=== PATIENT | female | born 1960 ===

== ENCOUNTER 2019-02-20 14:48 | Observation (INO) | payer MEDICAID, SELFPAY ==
--- NOTE | 2019-02-20 16:18 | CT ---
Date of service: 02/20/2019 PROCEDURE: CT HEAD WITHOUT CONTRAST. HISTORY: h/a; dizzy COMPARISON: None available. TECHNIQUE: Axial computed tomography images were obtained through the head/brain without intravenous contrast. Radiation dose: Total exam DLP = 1068.26 mGy-cm. This CT exam was performed using one or more of the following dose reduction techniques: Automated exposure control, adjustment of the mA and/or kV according to patient size, and/or use of iterative reconstruction technique. FINDINGS: HEMORRHAGE: No intracranial hemorrhage. BRAIN: No mass effect or edema. No atrophy or chronic microvascular ischemic changes. Foci of coarse calcification are noted adjacent to the basilar cistern and in the posterior fossa of uncertain etiology. VENTRICLES: Unremarkable. No hydrocephalus. CALVARIUM: Unremarkable. PARANASAL SINUSES: Unremarkable as visualized. No significant inflammatory changes. MASTOID AIR CELLS: Unremarkable as visualized. No inflammatory changes. OTHER FINDINGS: None. IMPRESSION: No evidence of acute intracranial hemorrhage mass effect or midline shift.
[2019-02-20 16:33] LABS: BASO % 0.3 % (0.0-2.0); EOS # 0.1 K/uL (0.0-0.7); EOS % 1.4 % (0.0-4.0); HEMOGLOBIN 13.7 g/dL (11.0-16.0); LYMPH # 3.7 K/uL (1.0-4.3); LYMPH % 36.9 % (20.0-40.0); MEAN CELL VOLUME 91.4 fL (81.0-99.0); MEAN CORPUSCULAR HEMOGLOBIN 31.9 pg (27.0-31.0); MEAN PLATELET VOLUME 10.3 fL (7.2-11.7); MONO # 0.7 K/uL (0.0-0.8); MONO % 7.3 % (0.0-10.0); NEUT # 5.4 K/uL (1.8-7.0); NEUT % 54.1 % (50.0-75.0); NRBC % 0.1 % (0.0-2.0); RBC 4.27 Mil/uL (3.80-5.20); RED CELL DISTRIBUTION WIDTH 13.9 % (11.5-14.5)
--- NOTE | 2019-02-20 16:39 | C.PDOC ---
History Of Present Illness 58 year old female presents to the emergency department with complaints of 1 week of headache, worsening over the last three days. Patient states that her pain comes and goes and that she has not taken anything for it. Patient also r eports symptoms of nausea and dizziness. Patient states that she was seen in [facility] and diagnosed with cysticercosis. Patient reports dizziness when her moves to right more than left. Time Seen by Provider: 02/20/19 15:05 Chief Complaint (Nursing): Dizziness/Lightheaded History Per: Patient History/Exam Limitations: no limitations Onset/Duration Of Symptoms: Other (1 week) Current Symptoms Are (Timing): Worse Seizure Or Post-ictal Symptoms: None Fall Associated With With Symptoms: No Past Medical History Reviewed: Historical Data, Nursing Documentation, Vital Signs Vital Signs: Last Vital Signs Temp 98.9 F 02/20/19 14:53 Pulse 56 L 02/20/19 14:53 Resp 18 02/20/19 14:53 BP 108/67 02/20/19 14:53 Pulse Ox 97 02/20/19 14:53 Primary Care Provider: Non [facility] Provider, - Medical History PMH: Hypercholesterolemia Surgical History: No Surg Hx Family History: States: No Known Family Hx - Social History Hx Tobacco Use: No Hx Alcohol Use: No Hx Substance Use: No - Immunization History Hx Tetanus Toxoid Vaccination: No Hx Influenza Vaccination: No Hx Pneumococcal Vaccination: No Review Of Systems Except As Marked, All Systems Reviewed And Found Negative. Constitutional: Negative for: Fever, Chills, Weakness Cardiovascular: Negative for: Chest Pain Gastrointestinal: Positive for: Nausea Musculoskeletal: Positive for: Neck Pain Neurological: Positive for: Headache, Dizziness. Negative for: Weakness, Numbness Physical Exam - Physical Exam Appears: Non-toxic, No Acute Distress Skin: Normal Color, Warm, Dry Head: Atraumatic, Normacephalic Eye(s): bilateral: Normal Inspection, PERRL, EOMI, Other (NO nystagmus) Ear(s): Bilateral: Normal Nose: Normal Oral Mucosa: Moist Neck: No Normal ROM (ROM decreased due to pain), Paracervical Tenderness Chest: Symmetrical Cardiovascular: Rhythm Regular, No Murmur Respiratory: Normal Breath Sounds, No Rales, No Rhonchi, No Wheezing Gastrointestinal/Abdominal: Soft, No Tenderness, No Guarding, No Rebound Extremity: Normal ROM Neurological/Psych: Oriented x3, Normal Speech, Normal Cognition ED Course And Treatment - Laboratory Results Result Diagrams: 02/20/19 16:26 02/20/19 16:26 ECG: Interpreted By Me, Viewed By Me ECG Rhythm: Sinus Bradycardia, R BBB (incomplete), Nonspecific Changes (T wave changes) Rate From EC O2 Sat by Pulse Oximetry: 97 (RA) Pulse Ox Interpretation: Normal - Other Rad CXR X-Ray: Viewed By Me, Read By Radiologist Interpretation: IMPRESSION: Prominent lung markings. No evidence of consolidation in the lungs. - CT Scan/US CT Head Other Rad Studies (CT/US): Read By Radiologist, Radiology Report Reviewed CT/US Interpretation: IMPRESSION: No evidence of acute intracranial hemorrhage mass effect or midline shift. 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 HR dropped to 44, admit for symptomatic bradycardia. Disposition - Disposition - Scribe Statement The provider has reviewed the documentation as recorded by the Scribe (Manjti Maria) Provider Attestation: All medical record entries made by the Scribe were at my direction and personally dictated by me. I have reviewed the chart and agree that the record accurately reflects my personal performance of the history, physical exam, medical decision making, and the department course for this patient. I have also personally directed, reviewed, and agree with the discharge instructions and disposition.
[2019-02-20 16:45] LABS: ALB/GLOB RATIO 1.4 (1.0-2.1); ALBUMIN 4.1 g/dL (3.5-5.0); ALT/SGPT 28 U/L (9-52); AST/SGOT 32 U/L (14-36); BLOOD UREA NITROGEN 19 mg/dL (7-17); CALCIUM 9.6 mg/dl (8.6-10.4); GFR NON-AFRICAN AMERICAN > 60
[2019-02-20] MEDS ORDERED: Sodium Chloride 0.9% 1,000 ML IV ONE (17:13)
[2019-02-20] MEDS ORDERED: Sodium Chloride 0.9% 1,000 ML ONE (17:14)
--- NOTE | 2019-02-20 17:53 | RAD ---
Date of service: 02/20/2019 PROCEDURE: CHEST RADIOGRAPH, 1 VIEW HISTORY: SOB COMPARISON: 09/10/2014 FINDINGS: LUNGS: Prominent lung markings at lower lobes are noted bilaterally. PLEURA: No pneumothorax or pleural fluid seen. CARDIOVASCULAR: No aortic atherosclerotic calcification present. Normal. OSSEOUS STRUCTURES: Status post sternotomy. VISUALIZED UPPER ABDOMEN: Normal. OTHER FINDINGS: None. IMPRESSION: Prominent lung markings. No evidence of consolidation in the lungs.
[2019-02-20] MEDS ORDERED: Glucagon Recombinant 1 mg Inj IM PRN (18:31)
[2019-02-20] MEDS ORDERED: Dextrose 50% SYRINGE Inj (50 ml) IV PRN (18:31)
--- NOTE | 2019-02-20 18:32 | CP.PCM.HP ---
<HoracioKelley cabral V - Last Filed: 02/20/19 20:34> Meds Allergies/Adverse Reactions: Allergies Allergy/AdvReac Type Severity Reaction Status Date / Time No Known Allergies Allergy Verified 02/20/19 14:57 Results - Vital Signs Recent Vital Signs: Last Vital Signs Temp 97.7 F 02/20/19 18:40 Pulse 47 L 02/20/19 18:40 Resp 20 02/20/19 18:40 BP 126/76 02/20/19 18:40 Pulse Ox 98 02/20/19 18:40 - Labs Result Diagrams: 02/20/19 16:26 02/20/19 16:26 Labs: Laboratory Results - last 24 hr 02/20/19 02/20/19 02/20/19 15:17 16:26 16:26 WBC 10.0 RBC 4.27 Hgb 13.7 Hct 39.1 MCV 91.4 MCH 31.9 H MCHC 35.0 RDW 13.9 Plt Count 202 MPV 10.3 Neut % (Auto) 54.1 Lymph % (Auto) 36.9 [place] % (Auto) 7.3 Eos % (Auto) 1.4 Baso % (Auto) 0.3 Neut # (Auto) 5.4 Lymph # (Auto) 3.7 [place] # (Auto) 0.7 Eos # (Auto) 0.1 Baso # (Auto) 0.0 Sodium 137 Potassium 4.3 Chloride 103 Carbon Dioxide 26 Anion Gap 12 BUN 19 H Creatinine 0.5 L Est GFR ( Amer) > 60 Est GFR (Non-Af Amer) > 60 POC Glucose (mg/dL) 120 H Random Glucose 114 H D Calcium 9.6 Total Bilirubin 0.3 AST 32 ALT 28 Alkaline Phosphatase 74 Troponin I < 0.0120 Total Protein 7.1 Albumin 4.1 Globulin 3.0 Albumin/Globulin Ratio 1.4 Urine HCG, Qual Urine Opiates Screen Urine Methadone Screen Ur Barbiturates Screen Ur Phencyclidine Scrn Ur Amphetamines Screen U Benzodiazepines Scrn U Oth Cocaine Metabols U Cannabinoids Screen 02/20/19 02/20/19 18:32 18:32 WBC RBC Hgb Hct MCV MCH MCHC RDW Plt Count MPV Neut % (Auto) Lymph % (Auto) [place] % (Auto) Eos % (Auto) Baso % (Auto) Neut # (Auto) Lymph # (Auto) [place] # (Auto) Eos # (Auto) Baso # (Auto) Sodium Potassium Chloride Carbon Dioxide Anion Gap BUN Creatinine Est GFR ( Amer) Est GFR (Non-Af Amer) POC Glucose (mg/dL) Random Glucose Calcium Total Bilirubin AST ALT Alkaline Phosphatase Troponin I Total Protein Albumin Globulin Albumin/Globulin Ratio Urine HCG, Qual Negative Urine Opiates Screen Negative Urine Methadone Screen Negative Ur Barbiturates Screen Negative Ur Phencyclidine Scrn Negative Ur Amphetamines Screen Negative U Benzodiazepines Scrn Negative U Oth Cocaine Metabols Negative U Cannabinoids Screen Negative Attending/Attestation - Attestation I have personally seen and examined this patient.: Yes I have fully participated in the care of the patient.: Yes I have reviewed all pertinent clinical information: Yes <Carlos Escobedo - Last Filed: 02/24/19 07:21> History of Present Illness - History of Present Illness History of Present Illness: PGY-1 History and Physical for Dr. Mujica Patient is a 58 year old female with PMHx DM, vertigo, neurocystercycosis. open heart surgery (exact surgery unknown), and bradycardia who presents c/o headache and dizziness. Patient states that for one week she has had headache in back of her head that is a/w turning her neck from side to side. Patient states headache got worse in the last 3 days prompting her to come to the emergency room. In addition, patient state dizziness that is worse when she turns her head from side to side. Patient denies any nasal or sinus congestion, recent ear infection, or fevers. Patient states she has had similar dizziness in the past which went away spontaneously. Patient has been told in the past that she has a slow resting heart rate which has not required intervention, though she does follow with a environmental epidemiologist. PMHx: DM, vertigo, neurocystercycosis, open heart surgery (exact surgery unknown), and bradycardia PSHx: Heart surgery (in [facility], patient does not know what the operation was for) All: NKA Social: Denies alcohol, tobacco., drug use; lives in apartment on basement level Family hx: Denies Medications: Reviewed as per MAR PMD: Denies Present on Admission - Present on Admission Any Indicators Present on Admission: No Review of Systems - Constitutional Constitutional: absent: Chills, Fever, Weakness - EENT Eyes: Blurred Vision, Floaters Ears: Abnormal Hearing (swishing in ears when she turns side to side) Nose/Mouth/Throat: absent: Nasal Congestion, Nasal Discharge - Cardiovascular Cardiovascular: absent: Chest Pain, Chest Pain at Rest, Dyspnea - Respiratory Respiratory: absent: Cough, Wheezing - Gastrointestinal Gastrointestinal: absent: Abdominal Pain, Nausea - Genitourinary Genitourinary: absent: Dysuria, Flank Pain - Musculoskeletal Musculoskeletal: Neck Pain (b/l neck stiffness). absent: Back Pain - Neurological Neurological: Dizziness, Headaches, Other Visual Disturbances (seeing floaters). absent: Numbness - Psychiatric Psychiatric: absent: Anxiety, Depression - Endocrine Endocrine: absent: Fatigue - Hematologic/Lymphatic Hematologic: absent: Easy Bleeding, Easy Bruising Past Patient History - Past Social History Smoking Status: 0 - CARDIAC Hx Hypercholesterolemia: Yes - ENDOCRINE/METABOLIC Hx Endocrine Disorders: Yes Hx Diabetes Mellitus Type 2: Yes - PSYCHIATRIC Hx Substance Use: No - SURGICAL HISTORY Hx Surgeries: Yes Hx Open Heart Surgery: Yes Physical Exam - Constitutional Appears: Non-toxic, No Acute Distress - Head Exam Head Exam: ATRAUMATIC, NORMOCEPHALIC - Eye Exam Eye Exam: EOMI Additional comments: cloudiness over lenses b/l - ENT Exam ENT Exam: Mucous Membranes Moist - Respiratory Exam Respiratory Exam: Clear to Auscultation Bilateral, NORMAL BREATHING PATTERN. absent: Rhonchi, Wheezes - Cardiovascular Exam Cardiovascular Exam: REGULAR RHYTHM, +S1, +S2 - GI/Abdominal Exam GI & Abdominal Exam: Normal Bowel Sounds, Soft. absent: Tenderness - Extremities Exam Extremities exam: Positive for: normal inspection. Negative for: pedal edema, tenderness - Neurological Exam Neurological exam: Alert, CN II-XII Intact, Oriented x3 - Psychiatric Exam Psychiatric exam: Normal Affect, Normal Mood - Skin Skin Exam: Dry, Intact Results - Vital Signs Recent Vital Signs: Last Vital Signs Temp 98.9 F 02/20/19 14:53 Pulse 104 H 02/20/19 18:18 Resp 19 02/20/19 18:18 BP 138/51 L 02/20/19 18:18 Pulse Ox 97 02/20/19 18:22 - Labs Result Diagrams: 02/23/19 06:49 02/23/19 06:49 Labs: Laboratory Results - last 24 hr 02/20/19 02/20/19 02/20/19 15:17 16:26 16:26 WBC 10.0 RBC 4.27 Hgb 13.7 Hct 39.1 MCV 91.4 MCH 31.9 H MCHC 35.0 RDW 13.9 Plt Count 202 MPV 10.3 Neut % (Auto) 54.1 Lymph % (Auto) 36.9 [place] % (Auto) 7.3 Eos % (Auto) 1.4 Baso % (Auto) 0.3 Neut # (Auto) 5.4 Lymph # (Auto) 3.7 [place] # (Auto) 0.7 Eos # (Auto) 0.1 Baso # (Auto) 0.0 Sodium 137 Potassium 4.3 Chloride 103 Carbon Dioxide 26 Anion Gap 12 BUN 19 H Creatinine 0.5 L Est GFR ( Amer) > 60 Est GFR (Non-Af Amer) > 60 POC Glucose (mg/dL) 120 H Random Glucose 114 H D Calcium 9.6 Total Bilirubin 0.3 AST 32 ALT 28 Alkaline Phosphatase 74 Troponin I < 0.0120 Total Protein 7.1 Albumin 4.1 Globulin 3.0 Albumin/Globulin Ratio 1.4 Assessment & Plan - Assessment and Plan (Free Text) Assessment: 58 year old female with PMHx DM, vertigo, neurocystercycosis. open heart surgery, and bradycardia presents with headache and dizziness. Likely 2/2 vestibular labarynthitis, r/o acute nerological ccauses. Plan: Headache, hx neurocystercycosis -Ct head: No acute pathologic changes, no ICH -Neurochecks Q4 -CTA h/n w/ contrast - f/u -MRI brain w/o - f/u Dizziness -TSH, free T4 -NS @ 50 Hx Bradycardia -Pt reports hx asymptomatic bradycardia known by her environmental epidemiologist -HR increases on standing -Tele -Q6 EKG/NILSON - f/u -Echo - f/u Hx Heart surgery -15 years ago for vessels -echo - f/u DM -Metformin held -ISS -Accuchecks ACHS -Resume ASA 81 PPx -Heparin 5000 U SC Q12 -Fall risk protocol -PT/OT Assessment and plan d/w Dr. Sil Escobedo, PGY-1
[2019-02-20 19:16] LABS: BARBITURATES, UR NEGATIVE (NEGATIVE); BENZODIAZEPINES, UR NEGATIVE (NEGATIVE); OPIATES, UR NEGATIVE (NEGATIVE)
[2019-02-20 19:17] LABS: PHENCYCLIDINE, UR NEGATIVE (NEGATIVE)
[2019-02-20] MEDS: Sodium Chloride 0.9% 1,000 ML IV SCH (20:16)
[2019-02-20] MEDS ORDERED: Iodixanol 320 MG/ML 100 ML BOTTLE IV ONE (20:22)
[2019-02-20] MEDS: (Novolog) Insulin Aspart, Recombinant 100 u/ml 10 ml vial SC SCH (21:31)
[2019-02-20] MEDS ORDERED: (Novolog) Insulin Aspart, Recombinant 100 u/ml 10 ml vial SC SCH (22:00)
[2019-02-20 22:52] LABS: CK-MB 0.65 ng/mL (0.0-3.38)
[2019-02-21 04:40] LABS: HEMOGLOBIN 12.5 g/dL (11.0-16.0); MEAN CELL VOLUME 91.2 fL (81.0-99.0); MEAN CORPUSCULAR HEMOGLOBIN 30.4 pg (27.0-31.0); MEAN CORPUSCULAR HGB CONC 33.3 g/dL (33.0-37.0); MEAN PLATELET VOLUME 9.5 fL (7.2-11.7); RBC 4.11 Mil/uL (3.80-5.20); WHITE BLOOD COUNT 8.1 K/uL (4.8-10.8)
[2019-02-21 05:03] LABS: CK-MB 0.42 ng/mL (0.0-3.38); LDL CHOLESTEROL 141 mg/dL (0-129)
[2019-02-21 05:45] LABS: ALB/GLOB RATIO 1.5 (1.0-2.1); ALBUMIN 3.8 g/dL (3.5-5.0); ALT/SGPT 23 U/L (9-52); AST/SGOT 23 U/L (14-36); BLOOD UREA NITROGEN 14 mg/dL (7-17); CALCIUM 8.7 mg/dl (8.6-10.4); GFR NON-AFRICAN AMERICAN > 60; HDL CHOLESTEROL 39 mg/dL (30-70)
[2019-02-21] MEDS: (Novolog) Insulin Aspart, Recombinant 100 u/ml 10 ml vial SC SCH ×4 (10:21→21:38)
--- NOTE | 2019-02-21 11:58 | CP.PCM.PN ---
Subjective - Date & Time of Evaluation Date of Evaluation: 02/21/19 Time of Evaluation: 11:00 - Subjective Subjective: Medicine Progress Note for Hospitalist Service, Dr. Ling Pt seen and examined at bedside this am. C/o dizziness this am, states she is afraid to walk for fear of falling 2/2 to her dizziness. Reports decreased L sided hearing which has been chronic for the past several years. No acute events reported overnight by staff. Denies fever, chills, chest pain, sob, n/v/d/c, urinary complaints, or other symptoms. Objective - Vital Signs/Intake and Output Vital Signs (last 24 hours): Temp Pulse Resp BP Pulse Ox 98.1 F 47 L 20 121/72 98 02/21/19 07:10 02/21/19 11:12 02/21/19 07:10 02/21/19 07:10 02/21/19 07:10 - Medications Medications: Current Medications Acetaminophen (Tylenol 325mg Tab) 650 mg PO Q6 PRN PRN Reason: Headache Aspirin (Ecotrin) 81 mg PO DAILY [facility] Last Admin: 02/21/19 10:22 Dose: 81 mg Dextrose (Dextrose 50% Inj) 0 ml IV STAT PRN; Protocol PRN Reason: Hypoglycemia Protocol Dextrose (Glutose 15) 0 gm PO ONCE PRN; Protocol PRN Reason: Hypoglycemia Protocol Diphenhydramine HCl (Benadryl) 25 mg PO Q8H PRN PRN Reason: Itching / Pruritus Glucagon (Glucagen Diagnostic Kit) 0 mg IM STAT PRN; Protocol PRN Reason: Hypoglycemia Protocol Heparin Sodium (Porcine) (Heparin) 5,000 units SC Q12 [facility] Last Admin: 02/21/19 10:22 Dose: 5,000 units Dextrose (Dextrose 5% In Water 1000 Ml) 1,000 mls @ 0 mls/hr IV .Q0M PRN; Protocol PRN Reason: Hypoglycemia Protocol Sodium Chloride (Sodium Chloride 0.9%) 1,000 mls @ 50 mls/hr IV .Q20H [facility] Last Admin: 02/20/19 20:16 Dose: 50 mls/hr Insulin Aspart (Novolog) 0 unit SC ACHS LAMIN; Protocol Last Admin: 02/21/19 10:21 Dose: Not Given Meclizine HCl (Antivert) 25 mg PO Q8H PRN PRN Reason: Dizziness Last Admin: 02/21/19 08:21 Dose: 25 mg Ondansetron HCl (Zofran Tab) 4 mg PO Q8 PRN PRN Reason: Nausea/Vomiting Rosuvastatin Calcium (Crestor) 10 mg PO HS LAMIN - Labs Labs: 02/21/19 04:35 02/21/19 04:35 - Constitutional Appears: Non-toxic, No Acute Distress - Head Exam Head Exam: ATRAUMATIC, NORMOCEPHALIC - Eye Exam Eye Exam: EOMI, Normal appearance, Nystagmus - ENT Exam ENT Exam: Mucous Membranes Moist, Normal Oropharynx - Neck Exam Neck Exam: Full ROM, Normal Inspection. absent: Tenderness - Respiratory Exam Respiratory Exam: Clear to Ausculation Bilateral, NORMAL BREATHING PATTERN. absent: Rales, Rhonchi, Wheezes - Cardiovascular Exam Cardiovascular Exam: REGULAR RHYTHM, +S1, +S2. absent: Gallop, Rubs, Murmur - GI/Abdominal Exam GI & Abdominal Exam: Soft, Tenderness, Normal Bowel Sounds. absent: Distended, Guarding, Organomegaly - Extremities Exam Extremities Exam: Full ROM, Normal Capillary Refill, Normal Inspection - Neurological Exam Neurological Exam: Alert, Awake, CN II-XII Intact, Oriented x3 - Skin Skin Exam: Dry, Intact, Normal Color, Warm Assessment and Plan - Assessment and Plan (Free Text) Assessment: 58 year old female with PMHx DM, vertigo, neurocysticercosis. 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 Likely 2/2 vestibular labyrinthitis, BPPV, r/o acute neurological causes. Neurology and Cardiology consulted. Plan: Headache, hx neurocysticercosis -Ct head: No acute pathologic changes, no ICH -Neurochecks Q4 -Utox neg on admission -CTA head/neck w/ contrast: unremarkable -MRI brain pending -Neurology, Dr. Corona, consulted, recs appreciated Dizziness -TSH, free T4 wnl -NS @ 50 Hx Bradycardia -Pt reports hx asymptomatic bradycardia known by her automatic stacker for past 4 y, had prior work-up at [facility] -Will obtain prior records from [facility] at [facility], pt signed consent to have medical records released -HR increases on standing -Tele -NILSON x3 neg -Echo pending -Cardiology consulted, Dr. Breen, recs appreciated Hx Heart surgery -15 years ago for transposition of the great vessels -Echo pending DM -Metformin held -ISS -Accuchecks ACHS -ASA 81 PPX -Heparin 5000 U SC Q12 -Fall risk protocol -PT/OT Pt seen, examined with, and plan discussed with Dr. Ling, attending physician. Hernan Brown DO PGY-1, Contact Acid Plant Operator pager #[phone]
--- NOTE | 2019-02-21 13:12 | CP.PCM.CON ---
History of Present Illness - History of Present Illness History of Present Illness: Neurology Consultation Note: Consult requested by Dr. Mujica Mrs. Parks is a 58-year-old woman with a past medical history of DM, vertigo, neurocystercycosis, previous sternotomy for cardiac surgery, and bradycardia, who complains of a headache that has been ongoing for the last 2 weeks, but has progressed to a greater severity over the last 3 days. Non-contrast CT scan of the head was done and showed multiple areas of intracranial calcifications. Currently, the patient is not complaining of headache, but states that she feels dizzy and that the room is spinning. This is especially notable when she looks, or moves toward the left. She has nausea, but no vomiting. She feels that she has difficulty with walking as a result of these symptoms. Review of Systems - Constitutional Constitutional: As Per HPI - EENT Eyes: Blurred Vision Ears: absent: As Per HPI, Decreased Hearing, Ear Discharge, Ear Pain, Tinnitus, Abnormal Hearing, Disequilibrium, Dizziness, Other Nose/Mouth/Throat: absent: As Per HPI, Epistaxis, Nasal Congestion, Nasal Discharge, Nasal Obstruction, Nasal Trauma, Nose Pain, Post Nasal Drip, Sinus Pain, Sinus Pressure, Bleeding Gums, Change in Voice, Dental Pain, Dry Mouth, Dysphagia, Halitosis, Hoarsness, Lip Swelling, Mouth Lesions, Mouth Pain, Odynophagia, Sore Throat, Throat Swelling, Tongue Swelling, Facial Pain, Neck Pain, Neck Mass, Other - Cardiovascular Cardiovascular: As Per HPI - Respiratory Respiratory: absent: As Per HPI, Cough, Dyspnea, Hemoptysis, Dyspnea on Exertion, Wheezing, Snoring, Stridor, Pain on Inspiration, Chest Congestion, Excessive Mucous Production, Change in Mucous Color, Pain with Coughing, Other - Gastrointestinal Gastrointestinal: absent: As Per HPI, Abdominal Pain, Belching, Bloating, Change in Bowel Habits, Change in Stool Character, Coffee Ground Emesis, Constipation, Cramping, Diarrhea, Dyspepsia, Dysphagia, Early Satiety, Excessive Flatus, Fecal Incontinence, Heartburn, Hematemesis, Hematochezia, Loose Stools, Melena, Nausea, Odynophagia, Temesmus, Vomiting, Other - Musculoskeletal Musculoskeletal: absent: As Per HPI, Abnormal Gait, Arthralgias, Atrophy, Back Pain, Deformity, Joint Swelling, Limited Range of Motion, Loss of Height, Muscle Cramps, Muscle Weakness, Myalgias, Neck Pain, Numbness, Radiating Pain into Limb, Stiffness, Tingling, Other - Integumentary Integumentary: absent: As Per HPI, Acne, Alopecia, Bleeding Lesions, Change in Hair, Change in Nails, Change in Pigmentation, Changing Lesions, Dry Skin, Erythema, Furuncle, Hirsutism, Lesions, New Lesions, Non-Healing Lesions, Aliya tosensitivity, Pruritus, Rash, Skin Pain, Skin Ulcer, Sores, Striae, Swelling, Unusual Bruising, Wounds, Jaundice, Other - Neurological Neurological: As Per HPI - Psychiatric Psychiatric: absent: As Per HPI, Abnormal Sleep Pattern, Anhedonia, Anxiety, Auditory Hallucinations, Behavioral Changes, Change in Appetite, Change in Libido, Confusion, Depression, Difficulty Concentrating, Hallucinations, Homicidal Ideation, Hopelessness, Irritability, Memory Loss, Mood Swings, Panic Attacks, Paranoia, Suicidal Ideation, Visual Hallucinations, Tactile Hallucinations, Other - Endocrine Endocrine: absent: As Per HPI, Change in Body Appearance, Change in Libido, Cold Intolorance, Deepening of Voice, Excessive Sweating, Fatigue, Flushing, Heat Intolorance, Increase in Ring/Shoe/Hat Size, Palpitations, Polydipsia, Polyphagia, Polyuria, Other Past Patient History - Past Social History Smoking Status: 0 - CARDIAC Hx Hypercholesterolemia: Yes - ENDOCRINE/METABOLIC Hx Diabetes Mellitus Type 2: Yes - PSYCHIATRIC Hx Substance Use: No - SURGICAL HISTORY Hx Surgeries: Yes Hx Open Heart Surgery: Yes Meds Allergies/Adverse Reactions: Allergies Allergy/AdvReac Type Severity Reaction Status Date / Time No Known Allergies Allergy Verified 02/20/19 14:57 - Medications Medications: Current Medications Acetaminophen (Tylenol 325mg Tab) 650 mg PO Q6 PRN PRN Reason: Headache Aspirin (Ecotrin) 81 mg PO DAILY [facility] Last Admin: 02/21/19 10:22 Dose: 81 mg Dextrose (Dextrose 50% Inj) 0 ml IV STAT PRN; Protocol PRN Reason: Hypoglycemia Protocol Dextrose (Glutose 15) 0 gm PO ONCE PRN; Protocol PRN Reason: Hypoglycemia Protocol Diphenhydramine HCl (Benadryl) 25 mg PO Q8H PRN PRN Reason: Itching / Pruritus Glucagon (Glucagen Diagnostic Kit) 0 mg IM STAT PRN; Protocol PRN Reason: Hypoglycemia Protocol Heparin Sodium (Porcine) (Heparin) 5,000 units SC Q12 [facility] Last Admin: 02/21/19 10:22 Dose: 5,000 units Dextrose (Dextrose 5% In Water 1000 Ml) 1,000 mls @ 0 mls/hr IV .Q0M PRN; Protocol PRN Reason: Hypoglycemia Protocol Sodium Chloride (Sodium Chloride 0.9%) 1,000 mls @ 50 mls/hr IV .Q20H [facility] Last Admin: 02/20/19 20:16 Dose: 50 mls/hr Insulin Aspart (Novolog) 0 unit SC ACHS [facility]; Protocol Last Admin: 02/21/19 12:02 Dose: Not Given Meclizine HCl (Antivert) 25 mg PO Q8H PRN PRN Reason: Dizziness Last Admin: 02/21/19 08:21 Dose: 25 mg Ondansetron HCl (Zofran Tab) 4 mg PO Q8 PRN PRN Reason: Nausea/Vomiting Rosuvastatin Calcium (Crestor) 10 mg PO HS [facility] Physical Exam - Constitutional Appears: Well - Head Exam Head Exam: ATRAUMATIC, NORMAL INSPECTION, NORMOCEPHALIC - Eye Exam Eye Exam: EOMI, Normal appearance, PERRL Pupil Exam: NORMAL ACCOMODATION, PERRL - ENT Exam ENT Exam: Mucous Membranes Moist, Normal Exam - Neck Exam Neck exam: Positive for: Normal Inspection - Respiratory Exam Respiratory Exam: Clear to Auscultation Bilateral, NORMAL BREATHING PATTERN - Cardiovascular Exam Cardiovascular Exam: Bradycardia, +S1, +S2 - GI/Abdominal Exam GI & Abdominal Exam: Normal Bowel Sounds, Soft. absent: Tenderness - Extremities Exam Extremities exam: Positive for: normal inspection - Back Exam Back exam: NORMAL INSPECTION - Neurological Exam Neurological exam: Alert, CN II-XII Intact, Normal Gait, Oriented x3, Reflexes Normal - Psychiatric Exam Psychiatric exam: Normal Affect, Normal Mood - Skin Skin Exam: Dry, Intact, Normal Color, Warm Results - Vital Signs Recent Vital Signs: Last Vital Signs Temp 98.1 F 02/21/19 07:10 Pulse 47 L 02/21/19 11:12 Resp 20 02/21/19 07:10 BP 121/72 02/21/19 07:10 Pulse Ox 98 02/21/19 07:10 - Labs Result Diagrams: 02/21/19 04:35 02/21/19 04:35 Labs: Laboratory Results - last 24 hr 02/20/19 02/20/19 02/20/19 15:17 16:26 16:26 WBC 10.0 RBC 4.27 Hgb 13.7 Hct 39.1 MCV 91.4 MCH 31.9 H MCHC 35.0 RDW 13.9 Plt Count 202 MPV 10.3 Neut % (Auto) 54.1 Lymph % (Auto) 36.9 Crisp % (Auto) 7.3 Eos % (Auto) 1.4 Baso % (Auto) 0.3 Neut # (Auto) 5.4 Lymph # (Auto) 3.7 Crisp # (Auto) 0.7 Eos # (Auto) 0.1 Baso # (Auto) 0.0 Sodium 137 Potassium 4.3 Chloride 103 Carbon Dioxide 26 Anion Gap 12 BUN 19 H Creatinine 0.5 L Est GFR ( Amer) > 60 Est GFR (Non-Af Amer) > 60 POC Glucose (mg/dL) 120 H Random Glucose 114 H D Hemoglobin A1c Calcium 9.6 Phosphorus Magnesium Total Bilirubin 0.3 AST 32 ALT 28 Alkaline Phosphatase 74 Total Creatine Kinase CK-MB (Mass) Troponin I < 0.0120 Total Protein 7.1 Albumin 4.1 Globulin 3.0 Albumin/Globulin Ratio 1.4 Triglycerides Cholesterol LDL Cholesterol Direct HDL Cholesterol Free T4 TSH 3rd Generation Urine HCG, Qual Urine Opiates Screen Urine Methadone Screen Ur Barbiturates Screen Ur Phencyclidine Scrn Ur Amphetamines Screen U Benzodiazepines Scrn U Oth Cocaine Metabols U Cannabinoids Screen 02/20/19 02/20/19 02/20/19 18:32 18:32 21:24 WBC RBC Hgb Hct MCV MCH MCHC RDW Plt Count MPV Neut % (Auto) Lymph % (Auto) Crisp % (Auto) Eos % (Auto) Baso % (Auto) Neut # (Auto) Lymph # (Auto) Crisp # (Auto) Eos # (Auto) Baso # (Auto) Sodium Potassium Chloride Carbon Dioxide Anion Gap BUN Creatinine Est GFR ( Amer) Est GFR (Non-Af Amer) POC Glucose (mg/dL) 130 H Random Glucose Hemoglobin A1c Calcium Phosphorus Magnesium Total Bilirubin AST ALT Alkaline Phosphatase Total Creatine Kinase CK-MB (Mass) Troponin I Total Protein Albumin Globulin Albumin/Globulin Ratio Triglycerides Cholesterol LDL Cholesterol Direct HDL Cholesterol Free T4 TSH 3rd Generation Urine HCG, Qual Negative Urine Opiates Screen Negative Urine Methadone Screen Negative Ur Barbiturates Screen Negative Ur Phencyclidine Scrn Negative Ur Amphetamines Screen Negative U Benzodiazepines Scrn Negative U Oth Cocaine Metabols Negative U Cannabinoids Screen Negative 02/20/19 02/21/19 02/21/19 22:24 04:35 04:35 WBC RBC Hgb Hct MCV MCH MCHC RDW Plt Count MPV Neut % (Auto) Lymph % (Auto) Crisp % (Auto) Eos % (Auto) Baso % (Auto) Neut # (Auto) Lymph # (Auto) Crisp # (Auto) Eos # (Auto) Baso # (Auto) Sodium 138 Potassium 4.1 Chloride 107 Carbon Dioxide 22 Anion Gap 13 BUN 14 Creatinine 0.6 L Est GFR ( Amer) > 60 Est GFR (Non-Af Amer) > 60 POC Glucose (mg/dL) Random Glucose 108 H Hemoglobin A1c Calcium 8.7 Phosphorus 4.3 Magnesium 2.1 Total Bilirubin 0.3 AST 23 ALT 23 Alkaline Phosphatase 65 Total Creatine Kinase 45 CK-MB (Mass) 0.65 Troponin I < 0.0120 Total Protein 6.2 L Albumin 3.8 Globulin 2.5 Albumin/Globulin Ratio 1.5 Triglycerides 292 H D Cholesterol 223 H LDL Cholesterol Direct 141 H HDL Cholesterol 39 Free T4 0.93 TSH 3rd Generation 2.41 Urine HCG, Qual Urine Opiates Screen Urine Methadone Screen Ur Barbiturates Screen Ur Phencyclidine Scrn Ur Amphetamines Screen U Benzodiazepines Scrn U Oth Cocaine Metabols U Cannabinoids Screen 02/21/19 02/21/19 02/21/19 04:35 04:35 04:35 WBC 8.1 RBC 4.11 Hgb 12.5 Hct 37.5 MCV 91.2 MCH 30.4 MCHC 33.3 RDW 14.0 Plt Count 180 MPV 9.5 Neut % (Auto) Lymph % (Auto) Crisp % (Auto) Eos % (Auto) Baso % (Auto) Neut # (Auto) Lymph # (Auto) Crisp # (Auto) Eos # (Auto) Baso # (Auto) Sodium Potassium Chloride Carbon Dioxide Anion Gap BUN Creatinine Est GFR ( Amer) Est GFR (Non-Af Amer) POC Glucose (mg/dL) Random Glucose Hemoglobin A1c 6.4 Calcium Phosphorus Magnesium Total Bilirubin AST ALT Alkaline Phosphatase Total Creatine Kinase 29 L CK-MB (Mass) 0.42 Troponin I < 0.0120 Total Protein Albumin Globulin Albumin/Globulin Ratio Triglycerides Cholesterol LDL Cholesterol Direct HDL Cholesterol Free T4 TSH 3rd Generation Urine HCG, Qual Urine Opiates Screen Urine Methadone Screen Ur Barbiturates Screen Ur Phencyclidine Scrn Ur Amphetamines Screen U Benzodiazepines Scrn U Oth Cocaine Metabols U Cannabinoids Screen 02/21/19 02/21/19 06:21 11:22 WBC RBC Hgb Hct MCV MCH MCHC RDW Plt Count MPV Neut % (Auto) Lymph % (Auto) Crisp % (Auto) Eos % (Auto) Baso % (Auto) Neut # (Auto) Lymph # (Auto) Crisp # (Auto) Eos # (Auto) Baso # (Auto) Sodium Potassium Chloride Carbon Dioxide Anion Gap BUN Creatinine Est GFR ( Amer) Est GFR (Non-Af Amer) POC Glucose (mg/dL) 114 H 129 H Random Glucose Hemoglobin A1c Calcium Phosphorus Magnesium Total Bilirubin AST ALT Alkaline Phosphatase Total Creatine Kinase CK-MB (Mass) Troponin I Total Protein Albumin Globulin Albumin/Globulin Ratio Triglycerides Cholesterol LDL Cholesterol Direct HDL Cholesterol Free T4 TSH 3rd Generation Urine HCG, Qual Urine Opiates Screen Urine Methadone Screen Ur Barbiturates Screen Ur Phencyclidine Scrn Ur Amphetamines Screen U Benzodiazepines Scrn U Oth Cocaine Metabols U Cannabinoids Screen Assessment & Plan (1) Vertigo Assessment and Plan: Likely benign positional vertigo. I recommend starting valium 2 mg BID and consulting with PT for vestibular rehab and Eply maneuver as well as education. MRI of the brain is pending. Thank you for this consultation. Status: Acute
--- NOTE | 2019-02-21 17:47 | CT ---
Date of service: 02/20/2019 PROCEDURE: CT Angiography of the Brain and neck. HISTORY: dizziness, history neurocystercycosis COMPARISON: None available. TECHNIQUE: CT angiography of the neck and intracranial arteries was performed. Coronal and sagittal maximum intensity projection reformated images were generated. IV contrast: 100 mL of Visipaque 320 intravenously. Radiation dose: Total exam DLP = 520.1 mGy-cm. This CT exam was performed using one or more of the following dose reduction techniques: Automated exposure control, adjustment of the mA and/or kV according to patient size, and/or use of iterative reconstruction technique. FINDINGS: RIGHT CAROTID ARTERIES: Common Carotid Artery: Normal. Carotid Bifurcation: Normal. Internal Carotid small foci of atherosclerotic calcification are noted at carotid bifurcation without evidence of significant stenosis. External Carotid Artery (proximal branches): Normal. LEFT CAROTID ARTERIES: Common Carotid Artery: Normal. Carotid Bifurcation: Normal. Internal Carotid Artery:Normal. External Carotid Artery (proximal branches): Normal. VERTEBRAL ARTERIES: Right Vertebral Artery: Normal. Left Vertebral Artery: Normal. INTERNAL CEREBRAL ARTERIES: Unremarkable. The skull base, petrous, cavernous and supraclinoid segments are bilaterally widely patent. ANTERIOR CEREBRAL ARTERIES: Unremarkable. A1 and A2 segments are widely patent. Smaller distal branches unremarkable, as visualized. MIDDLE CEREBRAL ARTERIES: Unremarkable. M1 and M2 segments are widely patent. Perisylvian branches grossly symmetric. POSTERIOR CIRCULATION: Basilar Artery: Unremarkable. Distal Vertebral Arteries: Unremarkable. Posterior Cerebral Arteries: Unremarkable. Posterior Inferior Cerebellar Arteries: Unremarkable. ANEURYSM/ VASCULAR MALFORMATIONS: None. OTHER FINDINGS: None. IMPRESSION: Unremarkable CT Angiography of the Brain.
[2019-02-22] MEDS: (Novolog) Insulin Aspart, Recombinant 100 u/ml 10 ml vial SC SCH ×3 (07:54→17:02)
[2019-02-22 08:32] LABS: HEMOGLOBIN 12.7 g/dL (11.0-16.0); MEAN CELL VOLUME 89.9 fL (81.0-99.0); MEAN CORPUSCULAR HEMOGLOBIN 30.7 pg (27.0-31.0); MEAN CORPUSCULAR HGB CONC 34.2 g/dL (33.0-37.0); MEAN PLATELET VOLUME 9.7 fL (7.2-11.7); RBC 4.12 Mil/uL (3.80-5.20); WHITE BLOOD COUNT 7.8 K/uL (4.8-10.8)
[2019-02-22 08:54] LABS: ALB/GLOB RATIO 1.6 (1.0-2.1); ALT/SGPT 26 U/L (9-52); AST/SGOT 29 U/L (14-36); BLOOD UREA NITROGEN 17 mg/dL (7-17); CALCIUM 9.1 mg/dl (8.6-10.4); GFR NON-AFRICAN AMERICAN > 60
--- NOTE | 2019-02-22 10:37 | CARD ---
APPROVED REPORT Date of service: 02/22/2019 EXAM: Two-dimensional and M-mode echocardiogram with Doppler and color Doppler. Other Information Quality : GoodRhythm : Bradycardia INDICATION Dizziness and Vertigo HX OF UNKNOWN HEART SURGERY RISK FACTORS Diabetes 2D DIMENSIONS IVSd0.8 (0.7-1.1cm)LVDd4.6 (3.9-5.9cm) PWd0.8 (0.7-1.1cm)LA Ubakjb88 (18-58mL) LVDs2.7 (2.5-4.0cm)FS (%) 34.3 % LVEF (%)53.3 (>50%)LVEF (Omer's)52.00 % IVC0.00 cm M-Mode DIMENSIONS RVDd2.70 (2.1-3.2cm)Left Atrium (MM)4.37 (2.5-4.0cm) IVSd1.01 (0.7-1.1cm)Aortic Root2.85 (2.2-3.7cm) LVDd5.37 (4.0-5.6cm)Aortic Cusp Exc.1.91 (1.5-2.0cm) PWd0.82 (0.7-1.1cm)FS (%) 31 % LVDs3.71 (2.0-3.8cm)TAPSE10.58 cm LVEF (%)58 (>50%) Mitral Valve MV E Gmjhrpnb32.9cm/sMV A Pbnprrzj60.3cm/sE/A ratio2.4 RDUV742.47 cm/s TDI Lateral E' Peak V11.19cm/sMedial E' Peak V6.55cm/sE/Lateral E'6.6 E/Medial E'11.3 Tricuspid Valve TR Peak Kakywces880rs/sTR Peak Gr.99qgKrUWDS89brPb LEFT VENTRICLE The left ventricle is normal size. There is normal left ventricular wall thickness. The left ventricular function is normal. The left ventricular ejection fraction is within the normal range. There is normal LV segmental wall motion. The left ventricular diastolic function is normal. RIGHT VENTRICLE The right ventricle is moderately dilated. There is normal right ventricular wall thickness. The right ventricular systolic function is normal. ATRIA The left atrium is mildly dilated. The right atrium is severely dilated. AORTIC VALVE The aortic valve is mildly thickened. No aortic regurgitation is present. There is no aortic valvular stenosis. MITRAL VALVE The mitral valve is mildly thickened. Mitral regurgitation is mild. TRICUSPID VALVE There is moderate tricuspid regurgitation. There is mild pulmonary hypertension. PULMONIC VALVE There is moderate pulmonic valvular regurgitation. GREAT VESSELS The aortic root is normal in size. The IVC is normal in size and collapses >50% with inspiration. PERICARDIAL EFFUSION There is no pericardial effusion. <Conclusion> There is normal left ventricular wall thickness. The left ventricular function is normal. The left ventricular ejection fraction is within the normal range. There is normal LV segmental wall motion. The left ventricular diastolic function is normal. The right ventricle is moderately dilated. The right atrium is severely dilated. Mitral regurgitation is mild. There is moderate tricuspid regurgitation. There is mild pulmonary hypertension. There is moderate pulmonic valvular regurgitation.
--- NOTE | 2019-02-22 13:38 | MRI ---
Date of service: 02/22/2019 PROCEDURE: MRI BRAIN WITHOUT CONTRAST HISTORY: Dizziness, history neurocysticercosis COMPARISON: CT head without contrast from 02/20/2019 TECHNIQUE: Multiplanar, multisequence MR images of the brain were obtained without intravenous contrast enhancement. FINDINGS: HEMORRHAGE: None DWI: No evidence of an acute or early subacute infarction. BRAIN PARENCHYMA: There are mild chronic microangiopathic changes. There is no mass, mass effect or abnormal extra-axial fluid collection. There is no territorial infarction. There is mild cerebellar tonsillar ectopia. There is an empty sella. VENTRICLES: There is mild age-related global parenchymal volume loss and proportionate enlargement of the ventricles and cortical sulci. There are prominent arachnoid granulations in the posterior fossa. CRANIUM: There is normal bone marrow signal pattern. ORBITS: Grossly unremarkable. PARANASAL SINUSES/MASTOIDS: Predominantly clear. VASCULAR SYSTEM: There are normal signal voids in the larger intracranial arteries. OTHER FINDINGS: None. IMPRESSION: No acute intracranial abnormality. Mild chronic microangiopathic changes and mild age-related global parenchymal volume loss.
--- NOTE | 2019-02-22 16:02 | CP.PCM.PN ---
Subjective - Date & Time of Evaluation Date of Evaluation: 02/22/19 Time of Evaluation: 15:58 - Subjective Subjective: Neuro Follow-Up Note: Mrs. Parks was evaluated this afternoon at bedside. She is still complaining of feeling dizzy and unbalanced when she moves her head from side to side and when she stands up too fast from a sitting/laying position. She does, however, admit that these symptoms have gotten better with the Valium. She denies h/a, visual changes, difficulty with speech, chest pain, palpitations, sob, cough, abd pain, n/v/d, paresthesias, chills. Objective - Vital Signs/Intake and Output Vital Signs (last 24 hours): Temp Pulse Resp BP Pulse Ox 97.6 F 57 L 20 104/63 98 02/22/19 08:00 02/22/19 12:00 02/22/19 08:00 02/22/19 08:00 02/22/19 12:00 Intake and Output: 02/22/19 02/22/19 06:59 18:59 Intake Total 1150 Balance 1150 - Medications Medications: Current Medications Acetaminophen (Tylenol 325mg Tab) 650 mg PO Q6 PRN PRN Reason: Headache Last Admin: 02/22/19 00:37 Dose: 650 mg Aspirin (Ecotrin) 81 mg PO DAILY [facility] Last Admin: 02/22/19 11:30 Dose: 81 mg Dextrose (Dextrose 50% Inj) 0 ml IV STAT PRN; Protocol PRN Reason: Hypoglycemia Protocol Dextrose (Glutose 15) 0 gm PO ONCE PRN; Protocol PRN Reason: Hypoglycemia Protocol Diphenhydramine HCl (Benadryl) 25 mg PO Q8H PRN PRN Reason: Itching / Pruritus Glucagon (Glucagen Diagnostic Kit) 0 mg IM STAT PRN; Protocol PRN Reason: Hypoglycemia Protocol Heparin Sodium (Porcine) (Heparin) 5,000 units SC Q12 [facility] Last Admin: 02/22/19 11:30 Dose: 5,000 units Dextrose (Dextrose 5% In Water 1000 Ml) 1,000 mls @ 0 mls/hr IV .Q0M PRN; Protocol PRN Reason: Hypoglycemia Protocol Sodium Chloride (Sodium Chloride 0.9%) 1,000 mls @ 50 mls/hr IV .Q20H [facility] Last Admin: 02/20/19 20:16 Dose: 50 mls/hr Insulin Aspart (Novolog) 0 unit SC ACHS [facility]; Protocol Last Admin: 02/22/19 12:47 Dose: 1 unit Meclizine HCl (Antivert) 25 mg PO Q8H PRN PRN Reason: Dizziness Last Admin: 02/22/19 12:13 Dose: 25 mg Ondansetron HCl (Zofran Tab) 4 mg PO Q8 PRN PRN Reason: Nausea/Vomiting Rosuvastatin Calcium (Crestor) 10 mg PO HS [facility] Last Admin: 02/21/19 21:51 Dose: 10 mg - Labs Labs: 02/22/19 08:17 02/22/19 08:17 - Constitutional Appears: Well, Non-toxic - Head Exam Head Exam: ATRAUMATIC, NORMAL INSPECTION, NORMOCEPHALIC - Eye Exam Eye Exam: EOMI, Normal appearance, PERRL Pupil Exam: NORMAL ACCOMODATION, PERRL - ENT Exam ENT Exam: Mucous Membranes Moist - Neck Exam Neck Exam: Full ROM, Normal Inspection - Respiratory Exam Respiratory Exam: NORMAL BREATHING PATTERN - Extremities Exam Extremities Exam: Full ROM, Normal Inspection. absent: Calf Tenderness, Pedal Edema - Back Exam Back Exam: Full ROM - Neurological Exam Neurological Exam: Alert, Awake, CN II-XII Intact, Oriented x3, Reflexes Normal Neuro motor strength exam: Left Upper Extremity: 5, Right Upper Extremity: 5, Left Lower Extremity: 5, Right Lower Extremity: 5 Additional comments: No focal motor or sensory deficits. No tremors. - Psychiatric Exam Psychiatric exam: Normal Affect, Normal Mood - Skin Skin Exam: Normal Color Assessment and Plan (1) Vertigo Assessment & Plan: Imaging reviewed: -Brain MRI (02/21/19): No acute intracranial abnormality. Mild chronic microangiopathic changes and mild age-related global parenchymal volume loss. -CTA Head and Neck (02/20/19): unremarkable. -CT head (02/20/19): No evidence of acute intracranial hemorrhage mass effect or midline shift. -Continue Valium 2mg PO BID prn. -Rehab for vestibular therapy and continue as outpatient. -Outpatient ENT consult as pt admits to feeling discomfort to left ear on/off. -Recommend cardiac work-up as pt has periods of bradycardia ad hypotension. R/o cardiac cause for current symptoms. -No further neuro recommendations. Reconsult prn. Thank you for this consultation. Keyana Marrero DNP, APPLICATIONS SCIENTIST d/w Dr. Corona Status: Acute
--- NOTE | 2019-02-22 19:02 | CP.PCM.PN ---
<Hernan Brown - Last Filed: 02/22/19 19:06> Subjective - Date & Time of Evaluation Date of Evaluation: 02/22/19 Time of Evaluation: 10:30 - Subjective Subjective: Medicine Progress Note for Hospitalist Service, Dr. Torres Pt seen and examined at bedside this am. Still having dizziness this am. C/o facial pain, R > L, somewhat improved since admission but still bothering her currently. Otherwise no acute events reported overnight by staff. Denies fever, chills, chest pain, sob, n/v/d/c, abd pain, urinary complaints, or other symptoms. Objective - Vital Signs/Intake and Output Vital Signs (last 24 hours): Temp Pulse Resp BP Pulse Ox 97.8 F 52 L 20 113/70 98 02/22/19 16:00 02/22/19 16:30 02/22/19 16:00 02/22/19 16:00 02/22/19 16:30 - Medications Medications: Current Medications Acetaminophen (Tylenol 325mg Tab) 650 mg PO Q6 PRN PRN Reason: Headache Last Admin: 02/22/19 00:37 Dose: 650 mg Aspirin (Ecotrin) 81 mg PO DAILY [facility] Last Admin: 02/22/19 11:30 Dose: 81 mg Dextrose (Dextrose 50% Inj) 0 ml IV STAT PRN; Protocol PRN Reason: Hypoglycemia Protocol Dextrose (Glutose 15) 0 gm PO ONCE PRN; Protocol PRN Reason: Hypoglycemia Protocol Diphenhydramine HCl (Benadryl) 25 mg PO Q8H PRN PRN Reason: Itching / Pruritus Glucagon (Glucagen Diagnostic Kit) 0 mg IM STAT PRN; Protocol PRN Reason: Hypoglycemia Protocol Heparin Sodium (Porcine) (Heparin) 5,000 units SC Q12 [facility] Last Admin: 02/22/19 11:30 Dose: 5,000 units Dextrose (Dextrose 5% In Water 1000 Ml) 1,000 mls @ 0 mls/hr IV .Q0M PRN; Protocol PRN Reason: Hypoglycemia Protocol Sodium Chloride (Sodium Chloride 0.9%) 1,000 mls @ 50 mls/hr IV .Q20H [facility] Last Admin: 02/20/19 20:16 Dose: 50 mls/hr Insulin Aspart (Novolog) 0 unit SC ACHS [facility]; Protocol Last Admin: 05/28/19 17:02 Dose: Not Given Meclizine HCl (Antivert) 25 mg PO Q8H PRN PRN Reason: Dizziness Last Admin: 02/22/19 12:13 Dose: 25 mg Ondansetron HCl (Zofran Tab) 4 mg PO Q8 PRN PRN Reason: Nausea/Vomiting Rosuvastatin Calcium (Crestor) 10 mg PO HS [facility] Last Admin: 02/21/19 21:51 Dose: 10 mg - Labs Labs: 02/22/19 08:17 02/22/19 08:17 - Constitutional Appears: Non-toxic, No Acute Distress - Head Exam Head Exam: ATRAUMATIC, NORMOCEPHALIC - Eye Exam Eye Exam: EOMI, Normal appearance, PERRL - ENT Exam ENT Exam: Mucous Membranes Moist, Normal Oropharynx - Respiratory Exam Respiratory Exam: Clear to Ausculation Bilateral, NORMAL BREATHING PATTERN. absent: Rales, Rhonchi, Wheezes - Cardiovascular Exam Cardiovascular Exam: Bradycardia, +S1, +S2. absent: Gallop, Rubs, Murmur - GI/Abdominal Exam GI & Abdominal Exam: Soft, Normal Bowel Sounds. absent: Distended, Tenderness, Organomegaly - Extremities Exam Extremities Exam: Full ROM, Normal Capillary Refill, Normal Inspection. absent: Pedal Edema, Tenderness - Neurological Exam Neurological Exam: Alert, Awake, CN II-XII Intact, Oriented x3 - Skin Skin Exam: Dry, Intact, Warm Assessment and Plan - Assessment and Plan (Free Text) Assessment: 58 year old female with PMHx DM, vertigo, neurocysticercosis. 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 Likely 2/2 vestibular labyrinthitis, BPPV, r/o acute neurological causes. Neurology and Cardiology consulted. Plan: Headache, hx neurocysticercosis -Ct head: No acute pathologic changes, no ICH -Neurochecks Q4 -Utox neg on admission -CTA head/neck w/ contrast: unremarkable -MRI brain: no acute intracranial abnormality. Mild chronic microangiopathic changes and mild age-related global parenchymal volume loss. -Neurology, Dr. 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 Torres, attending physician. Hernan Brown DO PGY-1, Psychological Anthropologist pager #[phone] <Scotty Torres - Last Filed: 02/23/19 07:25> Objective - Vital Signs/Intake and Output Vital Signs (last 24 hours): Temp Pulse Resp BP Pulse Ox 98.1 F 56 L 18 97/60 L 99 02/23/19 01:00 02/23/19 01:00 02/23/19 01:00 02/23/19 01:00 02/23/19 01:00 Intake and Output: 02/23/19 02/23/19 06:59 18:59 Intake Total 800 Balance 800 - Medications Medications: Current Medications Acetaminophen (Tylenol 325mg Tab) 650 mg PO Q6 PRN PRN Reason: Headache Last Admin: 02/22/19 21:03 Dose: 650 mg Aspirin (Ecotrin) 81 mg PO DAILY [facility] Last Admin: 02/22/19 11:30 Dose: 81 mg Dextrose (Dextrose 50% Inj) 0 ml IV STAT PRN; Protocol PRN Reason: Hypoglycemia Protocol Dextrose (Glutose 15) 0 gm PO ONCE PRN; Protocol PRN Reason: Hypoglycemia Protocol Diphenhydramine HCl (Benadryl) 25 mg PO Q8H PRN PRN Reason: Itching / Pruritus Glucagon (Glucagen Diagnostic Kit) 0 mg IM STAT PRN; Protocol PRN Reason: Hypoglycemia Protocol Heparin Sodium (Porcine) (Heparin) 5,000 units SC Q12 [facility] Last Admin: 02/22/19 21:03 Dose: 5,000 units Dextrose (Dextrose 5% In Water 1000 Ml) 1,000 mls @ 0 mls/hr IV .Q0M PRN; Protocol PRN Reason: Hypoglycemia Protocol Sodium Chloride (Sodium Chloride 0.9%) 1,000 mls @ 50 mls/hr IV .Q20H [facility] Last Admin: 02/22/19 21:02 Dose: 50 mls/hr Insulin Aspart (Novolog) 0 unit SC ACHS [facility]; Protocol Last Admin: 02/22/19 17:02 Dose: Not Given Meclizine HCl (Antivert) 25 mg PO Q8H PRN PRN Reason: Dizziness Last Admin: 02/22/19 12:13 Dose: 25 mg Ondansetron HCl (Zofran Tab) 4 mg PO Q8 PRN PRN Reason: Nausea/Vomiting Rosuvastatin Calcium (Crestor) 10 mg PO HS [facility] Last Admin: 02/22/19 21:03 Dose: 10 mg - Labs Labs: 02/22/19 08:17 02/22/19 08:17 Attending/Attestation - Attestation I have personally seen and examined this patient.: Yes I have fully participated in the care of the patient.: Yes I have reviewed all pertinent clinical information, including history, physical exam and plan: Yes Notes (Text): Medical attending: Patient was seen and examined by me with the medical facilities section director. Reviewed the above note by the resident and agree. When we rounded in the morning she had not yet had the results of the MRI of the brain and 2D echo. As reported above the MRI did not show an acute finding. Neurology has evaluated and recommendation PT and also Eply maneuvers for vertigo Scotty Torres
[2019-02-22] MEDS: Sodium Chloride 0.9% 1,000 ML IV SCH (21:02)
[2019-02-23 07:17] LABS: HEMOGLOBIN 12.8 g/dL (11.0-16.0); MEAN CELL VOLUME 90.5 fL (81.0-99.0); MEAN CORPUSCULAR HEMOGLOBIN 31.2 pg (27.0-31.0); MEAN CORPUSCULAR HGB CONC 34.5 g/dL (33.0-37.0); MEAN PLATELET VOLUME 9.8 fL (7.2-11.7); RBC 4.11 Mil/uL (3.80-5.20); RED CELL DISTRIBUTION WIDTH 14.1 % (11.5-14.5); WHITE BLOOD COUNT 8.6 K/uL (4.8-10.8)
[2019-02-23 07:22] LABS: ALB/GLOB RATIO 1.3 (1.0-2.1); ALBUMIN 3.9 g/dL (3.5-5.0); ALT/SGPT 28 U/L (9-52); AST/SGOT 21 U/L (14-36); BLOOD UREA NITROGEN 23 mg/dL (7-17); CALCIUM 9.3 mg/dl (8.6-10.4); GFR NON-AFRICAN AMERICAN > 60
[2019-02-23] MEDS: (Novolog) Insulin Aspart, Recombinant 100 u/ml 10 ml vial SC SCH ×4 (07:37→22:04)
--- NOTE | 2019-02-23 07:38 | CARD ---
APPROVED REPORT Date of service: 02/20/2019 EKG Measurement Heart [id number] ND [id number] <Conclusion> Sinus bradycardia Incomplete right bundle branch block Nonspecific T wave abnormality Abnormal ECG
[2019-02-23] MEDS: Sodium Chloride 0.9% 1,000 ML IV SCH (07:45)
[2019-02-23 08:32] VITALS: RESP 20
[2019-02-23] MEDS: POLYETHYLENE GLYCOL 3350 17 GM/Dose PACKET PO SCH (10:58)
--- NOTE | 2019-02-23 17:52 | CP.PCM.PN ---
<Hernan Brown - Last Filed: 02/23/19 17:53> Subjective - Date & Time of Evaluation Date of Evaluation: 02/23/19 Time of Evaluation: 11:00 - Subjective Subjective: Medicine Progress Note for Hospitalist Service, Dr. Scotty Torres Pt seen and examined at bedside this am. States she has been able to ambulate this am without concerns. Reports occasional dizziness. No acute events reported overnight by staff. 12-point ROS obtained, otherwise neg as per pt. Objective - Vital Signs/Intake and Output Vital Signs (last 24 hours): Temp Pulse Resp BP Pulse Ox 97.7 F 65 20 109/72 94 L 02/23/19 15:00 02/23/19 15:00 02/23/19 15:00 02/23/19 15:00 02/23/19 15:00 Intake and Output: 02/23/19 02/23/19 06:59 18:59 Intake Total 800 Balance 800 - Medications Medications: Current Medications Acetaminophen (Tylenol 325mg Tab) 650 mg PO Q6 PRN PRN Reason: Headache Last Admin: 02/23/19 17:04 Dose: 650 mg Aspirin (Ecotrin) 81 mg PO DAILY [facility] Last Admin: 02/23/19 09:20 Dose: 81 mg Dextrose (Dextrose 50% Inj) 0 ml IV STAT PRN; Protocol PRN Reason: Hypoglycemia Protocol Dextrose (Glutose 15) 0 gm PO ONCE PRN; Protocol PRN Reason: Hypoglycemia Protocol Diphenhydramine HCl (Benadryl) 25 mg PO Q8H PRN PRN Reason: Itching / Pruritus Glucagon (Glucagen Diagnostic Kit) 0 mg IM STAT PRN; Protocol PRN Reason: Hypoglycemia Protocol Heparin Sodium (Porcine) (Heparin) 5,000 units SC Q12 [facility] Last Admin: 02/23/19 09:19 Dose: 5,000 units Dextrose (Dextrose 5% In Water 1000 Ml) 1,000 mls @ 0 mls/hr IV .Q0M PRN; Protocol PRN Reason: Hypoglycemia Protocol Insulin Aspart (Novolog) 0 unit SC ACHS [facility]; Protocol Last Admin: 02/23/19 17:08 Dose: Not Given Meclizine HCl (Antivert) 25 mg PO Q8H PRN PRN Reason: Dizziness Last Admin: 02/22/19 12:13 Dose: 25 mg Ondansetron HCl (Zofran Tab) 4 mg PO Q8 PRN PRN Reason: Nausea/Vomiting Polyethylene Glycol (Miralax) 17 gm PO DAILY [facility] Last Admin: 02/23/19 10:58 Dose: 17 gm Rosuvastatin Calcium (Crestor) 10 mg PO HS [facility] Last Admin: 02/22/19 21:03 Dose: 10 mg - Labs Labs: 02/23/19 06:49 02/23/19 06:49 - Constitutional Appears: Non-toxic, No Acute Distress - Head Exam Head Exam: ATRAUMATIC, NORMOCEPHALIC - Eye Exam Eye Exam: EOMI, Normal appearance, PERRL - ENT Exam ENT Exam: Mucous Membranes Moist - Respiratory Exam Respiratory Exam: Clear to Ausculation Bilateral, NORMAL BREATHING PATTERN. absent: Rales, Rhonchi, Wheezes - Cardiovascular Exam Cardiovascular Exam: Bradycardia, REGULAR RHYTHM, +S1, +S2. absent: Gallop, Rubs, Murmur - GI/Abdominal Exam GI & Abdominal Exam: Soft, Normal Bowel Sounds. absent: Distended, Rigid, Tenderness, Organomegaly - Extremities Exam Extremities Exam: Full ROM, Normal Capillary Refill, Normal Inspection. absent: Pedal Edema, Tenderness - Neurological Exam Neurological Exam: Alert, Awake, CN II-XII Intact, Normal Gait, Oriented x3 - Skin Skin Exam: Dry, Intact, Warm Assessment and Plan - Assessment and Plan (Free Text) Assessment: 58 year old female with PMHx DM, vertigo, neurocysticercosis. 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 Likely 2/2 vestibular labyrinthitis, BPPV, r/o acute neurological causes. Neurology and Cardiology consulted. Plan: Headache, hx neurocysticercosis -Ct head: No acute pathologic changes, no ICH -Neurochecks Q4 -Utox neg on admission -CTA head/neck w/ contrast: unremarkable -MRI brain: no acute intracranial abnormality. Mild chronic microangiopathic changes and mild age-related global parenchymal volume loss. -Neurology, Dr. 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 Pt seen, examined with, and plan discussed with Dr. Torres, attending physician. Hernan Brown DO PGY-1, Personal Insurance Advisor pager #[phone] <Scotty Torres - Last Filed: 02/23/19 18:25> Objective - Vital Signs/Intake and Output Vital Signs (last 24 hours): Temp Pulse Resp BP Pulse Ox 97.7 F 65 20 109/72 94 L 02/23/19 15:00 02/23/19 15:00 02/23/19 15:00 02/23/19 15:00 02/23/19 15:00 Intake and Output: 02/23/19 02/23/19 06:59 18:59 Intake Total 800 Balance 800 - Medications Medications: Current Medications Acetaminophen (Tylenol 325mg Tab) 650 mg PO Q6 PRN PRN Reason: Headache Last Admin: 02/23/19 17:04 Dose: 650 mg Aspirin (Ecotrin) 81 mg PO DAILY [facility] Last Admin: 02/23/19 09:20 Dose: 81 mg Dextrose (Dextrose 50% Inj) 0 ml IV STAT PRN; Protocol PRN Reason: Hypoglycemia Protocol Dextrose (Glutose 15) 0 gm PO ONCE PRN; Protocol PRN Reason: Hypoglycemia Protocol Diphenhydramine HCl (Benadryl) 25 mg PO Q8H PRN PRN Reason: Itching / Pruritus Glucagon (Glucagen Diagnostic Kit) 0 mg IM STAT PRN; Protocol PRN Reason: Hypoglycemia Protocol Heparin Sodium (Porcine) (Heparin) 5,000 units SC Q12 [facility] Last Admin: 02/23/19 09:19 Dose: 5,000 units Dextrose (Dextrose 5% In Water 1000 Ml) 1,000 mls @ 0 mls/hr IV .Q0M PRN; Protocol PRN Reason: Hypoglycemia Protocol Insulin Aspart (Novolog) 0 unit SC ACHS [facility]; Protocol Last Admin: 02/23/19 17:08 Dose: Not Given Meclizine HCl (Antivert) 25 mg PO Q8H PRN PRN Reason: Dizziness Last Admin: 02/22/19 12:13 Dose: 25 mg Ondansetron HCl (Zofran Tab) 4 mg PO Q8 PRN PRN Reason: Nausea/Vomiting Polyethylene Glycol (Miralax) 17 gm PO DAILY [facility] Last Admin: 02/23/19 10:58 Dose: 17 gm Rosuvastatin Calcium (Crestor) 10 mg PO HS [facility] Last Admin: 02/22/19 21:03 Dose: 10 mg - Labs Labs: 02/23/19 06:49 02/23/19 06:49 Attending/Attestation - Attestation I have personally seen and examined this patient.: Yes I have fully participated in the care of the patient.: Yes I have reviewed all pertinent clinical information, including history, physical exam and plan: Yes Notes (Text): 02/23/19 18:22 Medical attending: Patient was seen and examined by me, agree with the above note by the resident. The patient reports that her symptoms are less today than before - the patient had a CTA of the head and neck, MRI and these were stable. The patient also has completed 2 decho as well. Pending further cardiology evaluation. Scotty Torres
--- NOTE | 2019-02-23 22:37 | CP.PCM.CON ---
History of Present Illness - History of Present Illness History of Present Illness: Reason For Consultation: Bradycardia Patient is a 58 year old female with PMHx DM, vertigo, neurocystercycosis. open heart surgery (exact surgery unknown), and bradycardia who presents c/o headache and dizziness. Patient states that for one week she has had headache in back of her head that is a/w turning her neck from side to side. Patient states headache got worse in the last 3 days prompting her to come to the emergency room. In addition, patient state dizziness that is worse when she turns her head from side to side. Patient denies any nasal or sinus congestion, recent ear infection, or fevers. Patient states she has had similar dizziness in the past which went away spontaneously. 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 PMHx: DM, vertigo, neurocystercycosis, open heart surgery (exact surgery unknown ), and bradycardia PSHx: Heart surgery (in [facility], patient does not know what the operation was for) All: NKA Social: Denies alcohol, tobacco., drug use; lives in apartment on basement level Family hx: Denies Medications: Reviewed as per MAR PMD: Denies Review of Systems - Constitutional Constitutional: absent: Chills, Fever, Weakness - EENT Eyes: Blurred Vision, Floaters Ears: Abnormal Hearing (swishing in ears when she turns side to side) Nose/Mouth/Throat: absent: Nasal Congestion, Nasal Discharge - Cardiovascular Cardiovascular: absent: Chest Pain, Chest Pain at Rest, Dyspnea - Respiratory Respiratory: absent: Cough, Wheezing - Gastrointestinal Gastrointestinal: absent: Abdominal Pain, Nausea - Genitourinary Genitourinary: absent: Dysuria, Flank Pain - Musculoskeletal Musculoskeletal: Neck Pain (b/l neck stiffness). absent: Back Pain - Neurological Neurological: Dizziness, Headaches, Other Visual Disturbances (seeing floaters). absent: Numbness - Psychiatric Psychiatric: absent: Anxiety, Depression - Endocrine Endocrine: absent: Fatigue - Hematologic/Lymphatic Hematologic: absent: Easy Bleeding, Easy Bruising Physical Exam - Constitutional Appears: Non-toxic, No Acute Distress - Head Exam Head Exam: ATRAUMATIC, NORMOCEPHALIC - Eye Exam Eye Exam: EOMI Additional comments: cloudiness over lenses b/l - ENT Exam ENT Exam: Mucous Membranes Moist - Respiratory Exam Respiratory Exam: Clear to Auscultation Bilateral, NORMAL BREATHING PATTERN. absent: Rhonchi, Wheezes - Cardiovascular Exam Cardiovascular Exam: REGULAR RHYTHM, +S1, +S2 - GI/Abdominal Exam GI & Abdominal Exam: Normal Bowel Sounds, Soft. absent: Tenderness - Extremities Exam Extremities exam: Positive for: normal inspection. Negative for: pedal edema, tenderness - Neurological Exam Neurological exam: Alert, CN II-XII Intact, Oriented x3 - Psychiatric Exam Psychiatric exam: Normal Affect, Normal Mood - Skin Skin Exam: Dry, Intact Assessment & Plan - Assessment and Plan (Free Text) Assessment: 58 year old female with PMHx DM, vertigo, neurocystercycosis. open heart surgery, and bradycardia presents with headache and dizziness. Likely 2/2 vestibular labarynthitis, r/o acute nerological ccauses. Plan: Headache, hx neurocystercycosis -Ct head: No acute pathologic changes, no ICH -Neurochecks Q4 -CTA h/n w/ contrast - f/u -MRI brain w/o - f/u Dizziness -TSH, free T4 -NS @ 50 Hx Bradycardia -Resolved -ECHO: Normal EF, Dilated right heart No further cardiac work up recommended at this time. 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 Hx Heart surgery -15 years ago Hx not available -echo - f/u DM -Metformin held -ISS -Accuchecks ACHS -Resume ASA 81 PPx -Heparin 5000 U SC Q12 -Fall risk protocol -PT/OT Past Patient History - Past Social History Smoking Status: 0 - CARDIAC Hx Hypercholesterolemia: Yes - ENDOCRINE/METABOLIC Hx Diabetes Mellitus Type 2: Yes - PSYCHIATRIC Hx Substance Use: No - SURGICAL HISTORY Hx Surgeries: Yes Hx Open Heart Surgery: Yes Meds Allergies/Adverse Reactions: Allergies Allergy/AdvReac Type Severity Reaction Status Date / Time No Known Allergies Allergy Verified 02/20/19 14:57 - Medications Medications: Current Medications Acetaminophen (Tylenol 325mg Tab) 650 mg PO Q6 PRN PRN Reason: Headache Last Admin: 02/23/19 17:04 Dose: 650 mg Aspirin (Ecotrin) 81 mg PO DAILY [facility] Last Admin: 02/23/19 09:20 Dose: 81 mg Dextrose (Dextrose 50% Inj) 0 ml IV STAT PRN; Protocol PRN Reason: Hypoglycemia Protocol Dextrose (Glutose 15) 0 gm PO ONCE PRN; Protocol PRN Reason: Hypoglycemia Protocol Diphenhydramine HCl (Benadryl) 25 mg PO Q8H PRN PRN Reason: Itching / Pruritus Glucagon (Glucagen Diagnostic Kit) 0 mg IM STAT PRN; Protocol PRN Reason: Hypoglycemia Protocol Dextrose (Dextrose 5% In Water 1000 Ml) 1,000 mls @ 0 mls/hr IV .Q0M PRN; Protocol PRN Reason: Hypoglycemia Protocol Insulin Aspart (Novolog) 0 unit SC ACHS [facility]; Protocol Last Admin: 02/23/19 22:04 Dose: Not Given Meclizine HCl (Antivert) 25 mg PO Q8H PRN PRN Reason: Dizziness Last Admin: 02/22/19 12:13 Dose: 25 mg Ondansetron HCl (Zofran Tab) 4 mg PO Q8 PRN PRN Reason: Nausea/Vomiting Polyethylene Glycol (Miralax) 17 gm PO DAILY [facility] Last Admin: 02/23/19 10:58 Dose: 17 gm Rosuvastatin Calcium (Crestor) 10 mg PO HS [facility] Last Admin: 02/23/19 21:13 Dose: 10 mg Results - Vital Signs Recent Vital Signs: Last Vital Signs Temp 97.7 F 02/23/19 15:00 Pulse 56 L 02/23/19 18:00 Resp 20 02/23/19 15:00 BP 109/72 02/23/19 15:00 Pulse Ox 94 L 02/23/19 18:00 - Labs Result Diagrams: 02/23/19 06:49 02/23/19 06:49 Labs: Laboratory Results - last 24 hr 02/23/19 02/23/19 02/23/19 06:08 06:49 06:49 WBC 8.6 RBC 4.11 Hgb 12.8 Hct 37.2 MCV 90.5 MCH 31.2 H MCHC 34.5 RDW 14.1 Plt Count 189 MPV 9.8 Sodium 137 Potassium 4.3 Chloride 105 Carbon Dioxide 24 Anion Gap 13 BUN 23 H Creatinine 0.6 L Est GFR ( Amer) > 60 Est GFR (Non-Af Amer) > 60 POC Glucose (mg/dL) 109 Random Glucose 107 H Calcium 9.3 Phosphorus 4.6 H Magnesium 2.1 Total Bilirubin 0.3 AST 21 ALT 28 Alkaline Phosphatase 69 Total Protein 6.7 Albumin 3.9 Globulin 2.9 Albumin/Globulin Ratio 1.3 02/23/19 02/23/19 02/23/19 12:11 16:45 21:35 WBC RBC Hgb Hct MCV MCH MCHC RDW Plt Count MPV Sodium Potassium Chloride Carbon Dioxide Anion Gap BUN Creatinine Est GFR ( Amer) Est GFR (Non-Af Amer) POC Glucose (mg/dL) 93 112 H 136 H Random Glucose Calcium Phosphorus Magnesium Total Bilirubin AST ALT Alkaline Phosphatase Total Protein Albumin Globulin Albumin/Globulin Ratio
[2019-02-24 01:14] VITALS: TEMP 97.6; O2SAT 98
--- NOTE | 2019-02-24 07:08 | CP.PCM.PN ---
Subjective - Date & Time of Evaluation Date of Evaluation: 02/24/19 Time of Evaluation: 07:06 - Subjective Subjective: Resident Progress Note for Hospitalist Service Patient examined at bedside. Patient states she is feeling much better this morning. Her headache and dizziness have improved. She is tolerating breakfast. Objective - Vital Signs/Intake and Output Vital Signs (last 24 hours): Temp Pulse Resp BP Pulse Ox 97.6 F 51 L 20 116/67 98 02/24/19 00:00 02/24/19 00:00 02/24/19 00:00 02/24/19 00:00 02/24/19 00:00 - Medications Medications: Current Medications Acetaminophen (Tylenol 325mg Tab) 650 mg PO Q6 PRN PRN Reason: Headache Last Admin: 02/24/19 05:24 Dose: 650 mg Aspirin (Ecotrin) 81 mg PO DAILY [facility] Last Admin: 02/23/19 09:20 Dose: 81 mg Dextrose (Dextrose 50% Inj) 0 ml IV STAT PRN; Protocol PRN Reason: Hypoglycemia Protocol Dextrose (Glutose 15) 0 gm PO ONCE PRN; Protocol PRN Reason: Hypoglycemia Protocol Diphenhydramine HCl (Benadryl) 25 mg PO Q8H PRN PRN Reason: Itching / Pruritus Glucagon (Glucagen Diagnostic Kit) 0 mg IM STAT PRN; Protocol PRN Reason: Hypoglycemia Protocol Dextrose (Dextrose 5% In Water 1000 Ml) 1,000 mls @ 0 mls/hr IV .Q0M PRN; P rotocol PRN Reason: Hypoglycemia Protocol Insulin Aspart (Novolog) 0 unit SC [facility]; Protocol Last Admin: 02/23/19 22:04 Dose: Not Given Meclizine HCl (Antivert) 25 mg PO Q8H PRN PRN Reason: Dizziness Last Admin: 02/22/19 12:13 Dose: 25 mg Ondansetron HCl (Zofran Tab) 4 mg PO Q8 PRN PRN Reason: Nausea/Vomiting Polyethylene Glycol (Miralax) 17 gm PO DAILY [facility] Last Admin: 02/23/19 10:58 Dose: 17 gm Rosuvastatin Calcium (Crestor) 10 mg PO HS [facility] Last Admin: 02/23/19 21:13 Dose: 10 mg - Labs Labs: 02/23/19 06:49 02/23/19 06:49 - Constitutional Appears: Non-toxic, No Acute Distress - Head Exam Head Exam: ATRAUMATIC, NORMOCEPHALIC - Eye Exam Eye Exam: EOMI, Normal appearance, PERRL - ENT Exam ENT Exam: Mucous Membranes Moist - Respiratory Exam Respiratory Exam: Clear to Auscultation Bilateral, NORMAL BREATHING PATTERN. absent: Rales, Rhonchi, Wheezes - Cardiovascular Exam Cardiovascular Exam: Bradycardia, REGULAR RHYTHM, +S1, +S2. absent: Gallop, Rubs, Murmur - GI/Abdominal Exam GI & Abdominal Exam: Soft, Normal Bowel Sounds. absent: Distended, Rigid, Tenderness, Organomegaly - Extremities Exam Extremities Exam: Full ROM, Normal Capillary Refill, Normal Inspection. absent: Pedal Edema, Tenderness - Neurological Exam Neurological Exam: Alert, Awake, CN II-XII Intact, Normal Gait, Oriented x3 - Skin Skin Exam: Dry, Intact, Warm Assessment and Plan - Assessment and Plan (Free Text) Assessment: 58 year old female with PMHx DM, vertigo, neurocysticercosis. 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 Likely 2/2 vestibular labyrinthitis, BPPV, r/o acute neurological causes. Neurology and Cardiology consulted. Plan: Headache, hx neurocysticercosis -Ct head: No acute pathologic changes, no ICH -Neurochecks Q4 -Utox neg on admission -CTA head/neck w/ contrast: unremarkable -MRI brain: no acute intracranial abnormality. Mild chronic microangiopathic changes and mild age-related global parenchymal volume loss. -Neurology, Dr. 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 Howard Alexander PGY-1
[2019-02-24] MEDS: (Novolog) Insulin Aspart, Recombinant 100 u/ml 10 ml vial SC SCH ×2 (07:28→11:33)
[2019-02-24 07:31] LABS: HEMOGLOBIN 13.1 g/dL (11.0-16.0); MEAN CELL VOLUME 89.6 fL (81.0-99.0); MEAN CORPUSCULAR HEMOGLOBIN 31.3 pg (27.0-31.0); MEAN CORPUSCULAR HGB CONC 34.9 g/dL (33.0-37.0); MEAN PLATELET VOLUME 9.4 fL (7.2-11.7); RBC 4.19 Mil/uL (3.80-5.20); WHITE BLOOD COUNT 8.4 K/uL (4.8-10.8)
[2019-02-24 09:52] VITALS: BP 110/65
[2019-02-24] MEDS: POLYETHYLENE GLYCOL 3350 17 GM/Dose PACKET PO SCH (10:07)
[2019-02-24 10:31] LABS: ALB/GLOB RATIO 1.4 (1.0-2.1); ALBUMIN 4.2 g/dL (3.5-5.0); ALT/SGPT 23 U/L (9-52); AST/SGOT 34 U/L (14-36); BLOOD UREA NITROGEN 19 mg/dL (7-17); CALCIUM 9.7 mg/dl (8.6-10.4); GFR NON-AFRICAN AMERICAN > 60
--- NOTE | 2019-02-24 11:13 | CP.PCM.DIS ---
<AlexanderFrancescamonserrat L - Last Filed: 02/24/19 15:24> Provider - Provider Date of Admission: 02/20/19 17:28 Attending physician: Kelley Mujica DO Consults: 02/20/19 20:30 Neurology Consult Routine Comment: Consulting Provider: Balbir Corona Consulting Physician: Balbir Corona Reason for Consult: headache, hx of neurocyst 02/21/19 09:55 Cardiology Consult Routine Comment: Consulting Provider: Eve Mixon Consulting Physician: Eve Mixon Reason for Consult: Bradycardia, dizziness 02/23/19 09:13 Cardiology Consult Routine Comment: bradycardia, dizziness, hx of open heart sx Consulting Provider: Chevy Mg Consulting Physician: Chevy Mg Reason for Consult: bradycardia, dizziness, hx of open heart sx Time Spent in preparation of Discharge (in minutes): 35 Diagnosis - Discharge Diagnosis (1) Bradycardia Status: Chronic (2) Hyperlipemia Status: Chronic (3) Headache Status: Chronic (4) Vertigo Status: Chronic Hospital Course - Lab Results Lab Results: Most Recent Lab Values WBC 8.4 K/uL (4.8-10.8) 02/24/19 07:18 RBC 4.19 Mil/uL (3.80-5.20) 02/24/19 07:18 Hgb 13.1 g/dL (11.0-16.0) 02/24/19 07:18 Hct 37.5 % (34.0-47.0) 02/24/19 07:18 MCV 89.6 fL (81.0-99.0) 02/24/19 07:18 MCH 31.3 pg (27.0-31.0) H 02/24/19 07:18 MCHC 34.9 g/dL (33.0-37.0) 02/24/19 07:18 RDW 14.0 % (11.5-14.5) 02/24/19 07:18 Plt Count 211 K/uL (130-400) 02/24/19 07:18 MPV 9.4 fL (7.2-11.7) 02/24/19 07:18 Neut % (Auto) 54.1 % (50.0-75.0) 02/20/19 16:26 Lymph % (Auto) 36.9 % (20.0-40.0) 02/20/19 16:26 [place] % (Auto) 7.3 % (0.0-10.0) 02/20/19 16:26 Eos % (Auto) 1.4 % (0.0-4.0) 02/20/19 16: Baso % (Auto) 0.3 % (0.0-2.0) 02/20/19 16: Neut # (Auto) 5.4 K/uL (1.8-7.0) 02/20/19 16: Lymph # (Auto) 3.7 K/uL (1.0-4.3) 02/20/19 16: [place] # (Auto) 0.7 K/uL (0.0-0.8) 02/20/19 16: Eos # (Auto) 0.1 K/uL (0.0-0.7) 02/20/19 16: Baso # (Auto) 0.0 K/uL (0.0-0.2) 02/20/19 16:26 Sodium 136 mmol/L (132-148) 02/24/19 07:18 Potassium 4.4 mmol/L (3.6-5.2) 02/24/19 07:18 Chloride 104 mmol/L (98-107) 02/24/19 07:18 Carbon Dioxide 22 mmol/L (22-30) 02/24/19 07:18 Anion Gap 14 (10-20) 02/24/19 07:18 BUN 19 mg/dL (7-17) H 02/24/19 07:18 Creatinine 0.5 mg/dL (0.7-1.2) L 02/24/19 07:18 Est GFR ( Amer) > 60 02/24/19 07:18 Est GFR (Non-Af Amer) > 60 02/24/19 07:18 POC Glucose (mg/dL) 122 mg/dL (65-110) H 02/24/19 06:46 Random Glucose 108 mg/dL (65-105) H 02/24/19 07:18 Hemoglobin A1c 6.4 % (4.2-6.5) 02/21/19 04:35 Calcium 9.7 mg/dl (8.6-10.4) 02/24/19 07:18 Phosphorus 4.4 mg/dL (2.5-4.5) 02/24/19 07:18 Magnesium 2.2 mg/dL (1.6-2.3) 02/24/19 07:18 Total Bilirubin 0.3 mg/dL (0.2-1.3) 02/24/19 07:18 AST 34 U/L (14-36) 02/24/19 07:18 ALT 23 U/L (9-52) 02/24/19 07:18 Alkaline Phosphatase 78 U/L (38-126) 02/24/19 07:18 Total Creatine Kinase 29 U/L (30-135) L 02/21/19 04:35 CK-MB (Mass) 0.42 ng/mL (0.0-3.38) 02/21/19 04:35 Troponin I < 0.0120 ng/mL (0.00-0.120) 02/21/19 04:35 Total Protein 7.1 g/dL (6.3-8.3) 02/24/19 07:18 Albumin 4.2 g/dL (3.5-5.0) 02/24/19 07:18 Globulin 2.9 gm/dL (2.2-3.9) 02/24/19 07:18 Albumin/Globulin Ratio 1.4 (1.0-2.1) 02/24/19 07:18 Triglycerides 292 mg/dL (0-149) H D 02/21/19 04:35 Cholesterol 223 mg/dL (0-199) H 02/21/19 04:35 LDL Cholesterol Direct 141 mg/dL (0-129) H 02/21/19 04:35 HDL Cholesterol 39 mg/dL (30-70) 02/21/19 04:35 Free T4 0.93 ng/dL (0.78-2.19) 02/21/19 04:35 TSH 3rd Generation 2.41 mIU/L (0.46-4.68) 02/21/19 04:35 Urine HCG, Qual Negative (NEGATIVE) 02/20/19 18:32 Urine Opiates Screen Negative (NEGATIVE) 02/20/19 18:32 Urine Methadone Screen Negative (NEGATIVE) 02/20/19 18:32 Ur Barbiturates Screen Negative (NEGATIVE) 05/26/19 18:32 Ur Phencyclidine Scrn Negative (NEGATIVE) 02/20/19 18:32 Ur Amphetamines Screen Negative (NEGATIVE) 02/20/19 18:32 U Benzodiazepines Scrn Negative (NEGATIVE) 02/20/19 18:32 U Oth Cocaine Metabols Negative (NEGATIVE) 02/20/19 18:32 U Cannabinoids Screen Negative (NEGATIVE) 02/20/19 18:32 - Hospital Course Hospital Course: On admission: Patient is a 58 year old female with PMHx DM, vertigo, neurocystercycosis. open heart surgery (exact surgery unknown), and bradycardia who presents c/o headache and dizziness. Patient states that for one week she has had headache in back of her head that is a/w turning her neck from side to side. Patient states headache got worse in the last 3 days prompting her to come to the emergency room. In addition, patient state dizziness that is worse when she turns her head from side to side. Patient denies any nasal or sinus congestion, recent ear infection, or fevers. Patient states she has had similar dizziness in the past which went away spontaneously. Patient has been told in the past that she has a slow resting heart rate which has not required intervention, though she does follow with a brand sales consultant. During hospital stay: CT head was done which no acute pathology, no acute intracranial hemorrhage. CTA of head and neck with contrast was done which unremarkable. Urine drugscreen was negative. MRI brain was done which showed no acute intracranial abnormality. Mild chronic microangiopathic changes and mild age-related global parenchymal volume loss. Neurology was consulted, advised that patient most likely has BPPV. Thyroid function tests were within normal limits. Troponins were negative x3. ECHO showed LVEF within normal limits, R atrium and R ventricle dilated, moderate tricuspid regurgitation, mild pulm HTN, moderate pulmonic valvular regurgitation. Cardiology was consulted, advised that patient may have viral labyrinthitis. Patient was observed ambulating with no dizziness or gait disturbances. Telemetry was monitored while patient was a mbulating and was unremarkable. Patient improved clinically throughout admission and was optimized for discharge.Please see EMR for full summary. Discharge Exam - Additional Findings Additional findings: - Constitutional Appears: Non-toxic, No Acute Distress - Head Exam Head Exam: ATRAUMATIC, NORMOCEPHALIC - Eye Exam Eye Exam: EOMI, Normal appearance, PERRL - ENT Exam ENT Exam: Mucous Membranes Moist - Respiratory Exam Respiratory Exam: Clear to Auscultation Bilateral, NORMAL BREATHING PATTERN. absent: Rales, Rhonchi, Wheezes - Cardiovascular Exam Cardiovascular Exam: Bradycardia, REGULAR RHYTHM, +S1, +S2. absent: Gallop, Rubs, Murmur - GI/Abdominal Exam GI & Abdominal Exam: Soft, Normal Bowel Sounds. absent: Distended, Rigid, Tenderness, Organomegaly - Extremities Exam Extremities Exam: Full ROM, Normal Capillary Refill, Normal Inspection. absent: Pedal Edema, Tenderness - Neurological Exam Neurological Exam: Alert, Awake, CN II-XII Intact, Normal Gait, Oriented x3 - Skin Skin Exam: Dry, Intact, Warm Discharge Plan - Discharge Medications Prescriptions: Aspirin [Adult Aspirin Regimen] 81 mg PO DAILY 14 Days #14 tablet. Gabapentin [Neurontin] 100 mg PO BID 14 Days #14 capsule Meclizine HCl 12.5 mg PO BID PRN 14 Days #28 tablet PRN Reason: Dizziness MetFORMIN ER [Glucophage XR] 500 mg PO DAILY 14 Days #14 ter Rosuvastatin Calcium [Crestor] 10 mg PO HS 14 Days #14 tab - Follow Up Plan Condition: GOOD Disposition: HOME/ ROUTINE Patient education suggested?: Yes Instructions: Heart Healthy Diet, Diabetes Exchange Diet, Vertigo (a Type of Dizziness) (DC), Diabetes Diet , Bradycardia (DC), Headache, Adult (DC) Additional Instructions: Follow up with your primary medical doctor within one week. You will need a referral to a brand sales consultant from your PMD. Resume your home medications as prescribed. Return to ED if symptoms return or worsen. Dom un seguimiento con alcala mdico de cabecera dentro de mendez semana. Necesitar mendez derivacin a un cardilogo de alcala PMD. Reanude johanne medicamentos caseros segn lo prescrito. Regrese a la ED si los sntomas regresan o empeoran. Referrals: Chevy Mg MD [Staff Provider] - <Scotty Torres - Last Filed: 02/24/19 17:10> Provider - Provider Date of Admission: 02/20/19 17:28 Attending physician: Kelley Mujica DO Consults: 02/20/19 20:30 Neurology Consult Routine Comment: Consulting Provider: Balbir Corona Consulting Physician: Balbir Corona Reason for Consult: headache, hx of neurocyst 02/21/19 09:55 Cardiology Consult Routine Comment: Consulting Provider: Eve Mixon Consulting Physician: Eve Mixon Reason for Consult: Bradycardia, dizziness 02/23/19 09:13 Cardiology Consult Routine Comment: bradycardia, dizziness, hx of open heart sx Consulting Provider: Chevy Mg Consulting Physician: Chevy Mg Reason for Consult: bradycardia, dizziness, hx of open heart sx Hospital Course - Lab Results Lab Results: Most Recent Lab Values WBC 8.4 K/uL (4.8-10.8) 02/24/19 07:18 RBC 4.19 Mil/uL (3.80-5.20) 02/24/19 07:18 Hgb 13.1 g/dL (11.0-16.0) 02/24/19 07:18 Hct 37.5 % (34.0-47.0) 02/24/19 07:18 MCV 89.6 fL (81.0-99.0) 02/24/19 07:18 MCH 31.3 pg (27.0-31.0) H 02/24/19 07:18 MCHC 34.9 g/dL (33.0-37.0) 02/24/19 07:18 RDW 14.0 % (11.5-14.5) 02/24/19 07:18 Plt Count 211 K/uL (130-400) 02/24/19 07:18 MPV 9.4 fL (7.2-11.7) 02/24/19 07:18 Neut % (Auto) 54.1 % (50.0-75.0) 02/20/19 16:26 Lymph % (Auto) 36.9 % (20.0-40.0) 02/20/19 16:26 [place] % (Auto) 7.3 % (0.0-10.0) 02/20/19 16:26 Eos % (Auto) 1.4 % (0.0-4.0) 02/20/19 16:26 Baso % (Auto) 0.3 % (0.0-2.0) 02/20/19 16:26 Neut # (Auto) 5.4 K/uL (1.8-7.0) 02/20/19 16:26 Lymph # (Auto) 3.7 K/uL (1.0-4.3) 02/20/19 16:26 [place] # (Auto) 0.7 K/uL (0.0-0.8) 02/20/19 16:26 Eos # (Auto) 0.1 K/uL (0.0-0.7) 02/20/19 16:26 Baso # (Auto) 0.0 K/uL (0.0-0.2) 02/20/19 16:26 Sodium 136 mmol/L (132-148) 02/24/19 07:18 Potassium 4.4 mmol/L (3.6-5.2) 02/24/19 07:18 Chloride 104 mmol/L (98-107) 02/24/19 07:18 Carbon Dioxide 22 mmol/L (22-30) 02/24/19 07:18 Anion Gap 14 (10-20) 02/24/19 07:18 BUN 19 mg/dL (7-17) H 02/24/19 07:18 Creatinine 0.5 mg/dL (0.7-1.2) L 02/24/19 07:18 Est GFR ( Amer) > 60 02/24/19 07:18 Est GFR (Non-Af Amer) > 60 02/24/19 07:18 POC Glucose (mg/dL) 140 mg/dL (65-110) H 02/24/19 11:10 Random Glucose 108 mg/dL (65-105) H 02/24/19 07:18 Hemoglobin A1c 6.4 % (4.2-6.5) 02/21/19 04:35 Calcium 9.7 mg/dl (8.6-10.4) 02/24/19 07:18 Phosphorus 4.4 mg/dL (2.5-4.5) 02/24/19 07:18 Magnesium 2.2 mg/dL (1.6-2.3) 02/24/19 07:18 Total Bilirubin 0.3 mg/dL (0.2-1.3) 02/24/19 07:18 AST 34 U/L (14-36) 02/24/19 07:18 ALT 23 U/L (9-52) 02/24/19 07:18 Alkaline Phosphatase 78 U/L (38-126) 02/24/19 07:18 Total Creatine Kinase 29 U/L (30-135) L 02/21/19 04:35 CK-MB (Mass) 0.42 ng/mL (0.0-3.38) 02/21/19 04:35 Troponin I < 0.0120 ng/mL (0.00-0.120) 02/21/19 04:35 Total Protein 7.1 g/dL (6.3-8.3) 02/24/19 07:18 Albumin 4.2 g/dL (3.5-5.0) 02/24/19 07:18 Globulin 2.9 gm/dL (2.2-3.9) 02/24/19 07:18 Albumin/Globulin Ratio 1.4 (1.0-2.1) 02/24/19 07:18 Triglycerides 292 mg/dL (0-149) H D 02/21/19 04:35 Cholesterol 223 mg/dL (0-199) H 02/21/19 04:35 LDL Cholesterol Direct 141 mg/dL (0-129) H 02/21/19 04:35 HDL Cholesterol 39 mg/dL (30-70) 02/21/19 04:35 Free T4 0.93 ng/dL (0.78-2.19) 02/21/19 04:35 TSH 3rd Generation 2.41 mIU/L (0.46-4.68) 02/21/19 04:35 Urine HCG, Qual Negative (NEGATIVE) 02/20/19 18:32 Urine Opiates Screen Negative (NEGATIVE) 02/20/19 18:32 Urine Methadone Screen Negative (NEGATIVE) 02/20/19 18:32 Ur Barbiturates Screen Negative (NEGATIVE) 02/20/19 18:32 Ur Phencyclidine Scrn Negative (NEGATIVE) 02/20/19 18:32 Ur Amphetamines Screen Negative (NEGATIVE) 02/20/19 18:32 U Benzodiazepines Scrn Negative (NEGATIVE) 02/20/19 18:32 U Oth Cocaine Metabols Negative (NEGATIVE) 02/20/19 18:32 U Cannabinoids Screen Negative (NEGATIVE) 02/20/19 18:32 Attending/Attestation - Attestation I have personally seen and examined this patient.: Yes I have fully participated in the care of the patient.: Yes I have reviewed all pertinent clinical information, including history, physical exam and plan: Yes Notes (Text): 02/24/19 17:10 Medical attending: Patient was seen and examined by me, agree with the above note by the resident The patient was not in any acute distress when we came and saw the patient. She was able to walk with us in the hallway on her own and without assistance. The patient will be discharged today. Scotty Torres
[2019-02-24 11:39] VITALS: PULSE 58
[2019-02-24] MEDS ORDERED: Pneumococcal 23-Valent Vaccine IM ONE (12:24)
== END 2019-02-24 12:45 | disposition home or self-care (01) ==
LOC: C.ER 14:48 → C.9E 17:28 → C.5S 18:12
PROVIDERS: ADMIT Hospitalist; ATTEND Hospitalist
DX: R42 Dizziness and giddiness (principal); R00.1 Bradycardia, unspecified; E78.5 Hyperlipidemia, unspecified; R51 Headache; E11.51 Type 2 diabetes mellitus with diabetic peripheral angiopathy without gangrene; E78.00 Pure hypercholesterolemia, unspecified; I95.9 Hypotension, unspecified
CPT/HCPCS: 36415; 70450; 70496; 70498; 70551; 71045; 80053; 80061; 82948; 83036; 83735; 84100; 84439; 84443; 84484; 84703; 85025; 85027; 90732; 93005; 93306; 96360; 97110; 97116; 97162; 97166; 97530; 99285; G0009; G0378; G0480; G8978; G8979; G8987; G8988; J1644; J7030; J7070; Q9967